=== PATIENT | male | born 1990 | race Caucasian/White ===

== ENCOUNTER 2020-08-27 16:54 | Emergency (ER) | payer MEDICAID ==
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
[2020-08-27] MEDS ORDERED: levETIRAcetam Soln 500 MG/5 ML Cup PO ONE (17:33)
[2020-08-27] MEDS ORDERED: levETIRAcetam 500 MG Tab PO ONE (17:39)
== END 2020-08-27 17:45 ==
LOC: VM.ED 16:54
DX: Z02.89 Encounter for other administrative examinations (principal); R56.9 Unspecified convulsions; Z72.0 Tobacco use
CPT/HCPCS: 99283; 99284; A9270-GY